=== PATIENT | male | born 1995 | race African-American/Black ===

== ENCOUNTER 2017-12-24 19:18 | Emergency (ER) | payer MEDICAID ==
[~2017-12-24] VITALS: Ht 182.9 cm; Wt 75.0 kg
[2017-12-24 19:21] VITALS: BP 140/80
[2017-12-24 19:47] LABS: BASOPHILS # (AUTO) 0.1 X10'3 (0-0.2); BASOPHILS % (AUTO) 1.5 % (0-1); EOSINOPHILS # (AUTO) 0.1 X10'3 (0-0.9); EOSINOPHILS % (AUTO) 3.1 % (0-6); HEMATOCRIT 46.5 % (42.0-52.0); HEMOGLOBIN 15.8 g/dl (14.0-17.9); LYMPHOCYTES # (AUTO) 2.1 X10'3 (1.1-4.8); MEAN CORPUSCULAR HEMOGLOBIN 30.8 PG (27.0-31.0); MEAN CORPUSCULAR HGB CONC 33.9 % (33.0-36.5); MEAN CORPUSCULAR VOLUME 90.7 FL (78-98); MEAN PLATELET VOLUME 7.7 FL (7.4-10.4); MONOCYTES # (AUTO) 0.3 X10'3 (0-0.9); MONOCYTES % (AUTO) 6.4 % (2-12); NEUTROPHILS # (AUTO) 1.9 X10'3 (1.8-7.7); PLATELET COUNT 200 X10'3 (140-440); RED BLOOD COUNT 5.13 X10'6 (4.70-6.10); WHITE BLOOD COUNT 4.5 X10'3 (4.5-11.0)
[2017-12-24 20:02] LABS: INR 1.1 INR; PARTIAL THROMBOPLASTIN TIME 29 SECONDS (22-32)
[2017-12-24 20:03] LABS: ALANINE AMINOTRANSFERASE 34 U/L (12-78); ALBUMIN 3.9 G/DL (3.4-5.0); ALBUMIN/GLOBULIN RATIO 1.1 (1.1-1.5); ALKALINE PHOSPHATASE 87 IU/L (46-116); ANION GAP 7 (8-16); ASPARTATE AMINO TRANSFERASE 18 U/L (10-37); BILIRUBIN,TOTAL 0.8 MG/DL (0.1-1.0); BLOOD UREA NITROGEN 13 MG/DL (7-18); BUN/CREATININE RATIO 12.3 (5.4-32.0); CALCIUM 10.1 MG/DL (8.5-10.1); CHLORIDE 103 MMOL/L (99-107); CREATININE 1.06 MG/DL (0.60-1.10); GLUCOSE 77 MG/DL (70-104); POTASSIUM 3.8 MMOL/L (3.5-5.1); SODIUM 139 MMOL/L (135-145); TOTAL CARBON DIOXIDE 28.7 MMOL/L (24-32); TOTAL PROTEIN 7.5 G/DL (6.4-8.2); eGFR 86 ML/MIN
== END 2017-12-24 20:46 | disposition home or self-care (01) ==
LOC: ER 19:20
DX: R07.89 Other chest pain (principal); J45.909 Unspecified asthma, uncomplicated; F12.10 Cannabis abuse, uncomplicated; R10.31 Right lower quadrant pain
CPT/HCPCS: 36415; 71045; 80053; 84484; 85025; 85610; 85730; 99285

== ENCOUNTER 2018-05-20 12:01 | Emergency (ER) | payer MEDICAID ==
[~2018-05-20] VITALS: Ht 182.9 cm; Wt 76.8 kg
[2018-05-20] MEDS ORDERED: aspirin 81mg tab.chew PO ONE (12:20)
[2018-05-20 12:49] LABS: BASOPHILS % (AUTO) 0.7 % (0-1); EOSINOPHILS % (AUTO) 0.5 % (0-6); HEMATOCRIT 45.8 % (42.0-52.0); HEMOGLOBIN 15.6 g/dl (14.0-17.9); LYMPHOCYTES # (AUTO) 1.1 X10'3 (1.1-4.8); LYMPHOCYTES % (AUTO) 40.2 % (21-51); MEAN CORPUSCULAR HEMOGLOBIN 30.9 PG (27.0-31.0); MEAN CORPUSCULAR HGB CONC 34.1 g/dL (33.0-36.5); MEAN CORPUSCULAR VOLUME 90.4 FL (78-98); MEAN PLATELET VOLUME 7.5 FL (7.4-10.4); MONOCYTES # (AUTO) 0.2 X10'3 (0-0.9); MONOCYTES % (AUTO) 6.6 % (2-12); NEUTROPHILS # (AUTO) 1.5 X10'3 (1.8-7.7); PLATELET COUNT 190 X10'3 (140-440); RED BLOOD COUNT 5.06 X10'6 (4.70-6.10); WHITE BLOOD COUNT 2.8 X10'3 (4.5-11.0)
--- NOTE | 2018-05-20 12:53 | NUR ---
PT'S CHEST PAIN NOT CARDIAC PER DR NAIDUF'S
[2018-05-20] MEDS ORDERED: ibuprofen tablet 400 MG TABLET PO ONE (12:55)
[2018-05-20 13:00] LABS: ALANINE AMINOTRANSFERASE 36 U/L (12-78); ALBUMIN 4.1 G/DL (3.4-5.0); ALBUMIN/GLOBULIN RATIO 1.2 (1.1-1.5); ALKALINE PHOSPHATASE 83 IU/L (46-116); ANION GAP 4 (8-16); ASPARTATE AMINO TRANSFERASE 17 U/L (10-37); BILIRUBIN,TOTAL 0.9 MG/DL (0.1-1.0); BLOOD UREA NITROGEN 13 MG/DL (7-18); BUN/CREATININE RATIO 13.7 (5.4-32.0); CALCIUM 9.9 MG/DL (8.5-10.1); CHLORIDE 105 MMOL/L (99-107); CREATININE 0.95 MG/DL (0.60-1.10); GLUCOSE 91 MG/DL (70-104); POTASSIUM 3.8 MMOL/L (3.5-5.1); SODIUM 137 MMOL/L (135-145); TOTAL CARBON DIOXIDE 28.2 MMOL/L (24-32); TOTAL PROTEIN 7.6 G/DL (6.4-8.2); eGFR > 90 ML/MIN
[2018-05-20 13:09] LABS: INR 1.1 INR; PARTIAL THROMBOPLASTIN TIME 27 SECONDS (22-32); PROTHROMBIN TIME 11.1 SECONDS (9.0-12.0)
[2018-05-20 13:19] VITALS: BP 101/80
[2018-05-20 13:42] LABS: TOTAL CELLS COUNTED 100
[2018-05-20 13:43] LABS: PLATELET ESTIMATE NORMAL
== END 2018-05-20 13:21 | disposition home or self-care (01) ==
LOC: ER 12:02
DX: R07.9 Chest pain, unspecified (principal); R06.02 Shortness of breath; J45.909 Unspecified asthma, uncomplicated; F12.90 Cannabis use, unspecified, uncomplicated
CPT/HCPCS: 36415; 71045; 80053; 84484; 85025; 85610; 85730; 93005; 99284

== ENCOUNTER 2018-06-29 13:47 | Emergency (ER) | payer MEDICAID ==
[~2018-06-29] VITALS: Ht 185.4 cm; Wt 79.5 kg
[2018-06-29 15:00] VITALS: BP 109/69
[2018-06-29] MEDS ORDERED: ondansetron 4mg rapidly disintigrating tab PO ONE (15:00)
[2018-06-29] MEDS ORDERED: predniSONE 20 mg tablet PO ONE (15:00)
[2018-06-29] MEDS ORDERED: albuterol 2.5 MG/3 ML nebule CONTNEB PRN (15:00)
[2018-06-29] MEDS ORDERED: ALBU6.7H INH (15:27)
== END 2018-06-29 16:28 | disposition home or self-care (01) ==
LOC: ER 13:48
DX: J45.901 Unspecified asthma with (acute) exacerbation (principal); R11.10 Vomiting, unspecified; F12.90 Cannabis use, unspecified, uncomplicated; Z79.899 Other long term (current) drug therapy; Z87.891 Personal history of nicotine dependence
CPT/HCPCS: 94644; 99285; J7512; 94640

== ENCOUNTER 2018-08-15 10:37 | Observation (INO) | payer MEDICAID ==
[~2018-08-15] VITALS: Ht 180.3 cm; Wt 75.0 kg
[~2018-08-15 10:37] MED LIST: ALBU6.7H9 INH
[2018-08-15] MEDS ORDERED: iohexol 350MG/ML 100ml bottle IV ONE (11:08)
--- NOTE | 2018-08-15 11:44 | NUR ---
PT C/O PAIN WITH MOVEMENT OF HIS RIGHT ARM
[2018-08-15 11:45] LABS: EOSINOPHILS # (AUTO) 0.1 X10'3 (0-0.9); LYMPHOCYTES # (AUTO) 1.8 X10'3 (1.1-4.8); NEUTROPHILS # (AUTO) 0.7 X10'3 (1.8-7.7)
[2018-08-15 11:56] LABS: PARTIAL THROMBOPLASTIN TIME 29 SECONDS (22-32)
[2018-08-15 11:59] LABS: ALANINE AMINOTRANSFERASE 25 U/L (12-78); ALBUMIN/GLOBULIN RATIO 1.1 (1.1-1.5); ALKALINE PHOSPHATASE 77 IU/L (46-116); ANION GAP 7 (8-16); ASPARTATE AMINO TRANSFERASE 13 U/L (10-37); BILIRUBIN,TOTAL 0.6 MG/DL (0.1-1.0); BLOOD UREA NITROGEN 9 MG/DL (7-18); CALCIUM 9.9 MG/DL (8.5-10.1); CHLORIDE 103 MMOL/L (99-107); GLUCOSE 89 MG/DL (70-104); POTASSIUM 3.8 MMOL/L (3.5-5.1); SODIUM 137 MMOL/L (135-145); TOTAL CARBON DIOXIDE 26.7 MMOL/L (24-32); TOTAL PROTEIN 7.7 G/DL (6.4-8.2); TROPONIN I < 0.04 NG/ML (0.0-0.05); eGFR > 90 ML/MIN
[2018-08-15 12:00] LABS: HEMATOCRIT 46.1 % (42.0-52.0); HEMOGLOBIN 15.5 g/dl (14.0-17.9); RED BLOOD COUNT 5.03 X10'6 (4.70-6.10); WHITE BLOOD COUNT 2.8 X10'3 (4.5-11.0)
[2018-08-15 12:01] LABS: MEAN CORPUSCULAR HEMOGLOBIN 30.9 PG (27.0-31.0); MEAN CORPUSCULAR HGB CONC 33.7 g/dL (33.0-36.5); MEAN CORPUSCULAR VOLUME 91.6 FL (78-98); PLATELET COUNT 190 X10'3 (140-440)
[2018-08-15 12:02] LABS: EOSINOPHILS % (AUTO) 4.2 % (0-6); MONOCYTES % (AUTO) 7.2 % (2-12); NEUTROPHILS % (AUTO) 24.6 % (42-75)
[2018-08-15 12:03] LABS: MONOCYTES # (AUTO) 0.2 X10'3 (0-0.9)
[2018-08-15 12:41] LABS: TOTAL CELLS COUNTED 100
[2018-08-15 12:42] LABS: PLATELET ESTIMATE NORMAL
[2018-08-15] MEDS ORDERED: normal saline 1000ml 1,000 ML IV SCH (13:03)
[2018-08-15] MEDS ORDERED: aspirin 325mg tablet PO ONE (13:05)
[2018-08-15] MEDS ORDERED: HYDROcodone/acetaminophen 5mg/325mg tablet PO PRN (13:05)
[2018-08-15] MEDS ORDERED: magnesium 2GM in 50ml NS 50 ML IV PRN (13:05)
[2018-08-15] MEDS ORDERED: potassium Cl 20 mEq SR tablet PO PRN ×2 (13:05)
[2018-08-15] MEDS ORDERED: mag hydrox/Alum hydrox/simeth 30ml oral suspension PO PRN (13:05)
[2018-08-15] MEDS ORDERED: magnesium hydroxide 30ml (MOM) UD suspension PO PRN (13:05)
[2018-08-15] MEDS ORDERED: metoclopramide 5 mg/ml inj IV PRN (13:05)
[2018-08-15] MEDS ORDERED: magnesium Cl slow-release 64mg tablet PO PRN (13:05)
[2018-08-15] MEDS ORDERED: acetaminophen 325mg tablet PO PRN ×2 (13:05)
[2018-08-15] MEDS ORDERED: magnesium 4gm in 100ml NS 100 ML IV PRN (13:05)
[2018-08-15] MEDS ORDERED: potassium Cl 40MEQ/NS 500ml 500 ML IV PRN (13:05)
[2018-08-15] MEDS ORDERED: bisacodyl 10mg suppository rectal RC PRN (13:05)
[2018-08-15] MEDS ORDERED: ondansetron/PF 4mg/2ml inj IV PRN (13:05)
[2018-08-15] MEDS ORDERED: potassium CL 10mEq/100ml bag 100 ML IV PRN (13:05)
--- NOTE | 2018-08-15 13:40 | NUR ---
Received report from Heri DONATO who received report from the ER
[2018-08-15 13:45] VITALS: BP 135/85
--- NOTE | 2018-08-15 13:45 | NUR ---
Patient came to floor to room 4022B stable upon arrival
[2018-08-15 13:50] LABS: MAGNESIUM 1.8 MG/DL (1.5-2.4); PHOSPHORUS 2.6 MG/DL (2.3-4.5)
[2018-08-15 14:12] LABS: HEMOGLOBIN A1C 5.4 % (4.5-6.2)
[2018-08-15] MEDS: ketorolac trometh. 30mg/ml inj. IV SCH ×2 (16:28→22:15)
[2018-08-15 18:00] VITALS: BP 114/75
--- NOTE | 2018-08-15 18:17 | NUR ---
Problems reprioritized. Patient report given, questions answered & plan of care reviewed with Shiva DONATO.
[2018-08-15] MEDS ORDERED: temazepam 15mg capsule PO PRN (21:00)
[2018-08-15 22:00] VITALS: BP 113/65
[2018-08-16] MEDS: ketorolac trometh. 30mg/ml inj. IV SCH ×3 (05:43→14:00)
[2018-08-16 05:57] LABS: EOSINOPHILS # (AUTO) 0.2 X10'3 (0-0.9); LYMPHOCYTES # (AUTO) 1.9 X10'3 (1.1-4.8); MONOCYTES # (AUTO) 0.2 X10'3 (0-0.9); NEUTROPHILS # (AUTO) 0.7 X10'3 (1.8-7.7)
[2018-08-16 05:59] LABS: BASOPHILS % (AUTO) 0.9 % (0-1); EOSINOPHILS % (AUTO) 5.7 % (0-6); HEMATOCRIT 47.4 % (42.0-52.0); LYMPHOCYTES % (AUTO) 61.9 % (21-51); MEAN CORPUSCULAR HEMOGLOBIN 31.4 PG (27.0-31.0); MEAN CORPUSCULAR HGB CONC 33.8 g/dL (33.0-36.5); MEAN CORPUSCULAR VOLUME 92.9 FL (78-98); MEAN PLATELET VOLUME 7.4 FL (7.4-10.4); MONOCYTES % (AUTO) 7.6 % (2-12); NEUTROPHILS % (AUTO) 23.9 % (42-75); PLATELET COUNT 176 X10'3 (140-440)
[2018-08-16 06:00] VITALS: BP 106/74
[2018-08-16 06:16] LABS: ALANINE AMINOTRANSFERASE 17 U/L (12-78); ALBUMIN 3.6 G/DL (3.4-5.0); ALKALINE PHOSPHATASE 73 IU/L (46-116); ANION GAP 6 (8-16); ASPARTATE AMINO TRANSFERASE 9 U/L (10-37); BILIRUBIN,TOTAL 0.5 MG/DL (0.1-1.0); BLOOD UREA NITROGEN 9 MG/DL (7-18); CALCIUM 9.3 MG/DL (8.5-10.1); CHLORIDE 104 MMOL/L (99-107); CHOL/HDL RATIO 2.3 (0.00-4.99); CHOLESTEROL 161 MG/DL (0-200); GLUCOSE 84 MG/DL (70-104); HDL CHOLESTEROL 71 MG/DL (35-60); LDL CHOLESTEROL 82 MG/DL (50-100); MAGNESIUM 1.8 MG/DL (1.5-2.4); SODIUM 137 MMOL/L (135-145); TOTAL CARBON DIOXIDE 26.7 MMOL/L (24-32); TOTAL PROTEIN 7.1 G/DL (6.4-8.2); TRIGLYCERIDES 58 MG/DL (20-135); eGFR > 90 ML/MIN
[2018-08-16 07:05] LABS: TOTAL CELLS COUNTED 100
[2018-08-16 07:06] LABS: PLATELET ESTIMATE NORMAL
[2018-08-16] MEDS ORDERED: aspirin 81mg tablet.DR PO SCH (08:00)
[2018-08-16] MEDS ORDERED: K and/or MAG REPLACEMENT MC SCH (08:00)
[2018-08-16 10:00] VITALS: BP 105/60
[2018-08-16] MEDS ORDERED: ALBU6.7H9 INH (14:07)
--- NOTE | 2018-08-16 14:32 | NUR ---
Received discharge orders from Dr. Miner. MRI negative that was completed today. Informed pt that MRI follow up exam was negative. Saline lock dc'd from RFA with cannula intact. No redness/swelling at insertion site. Pressure and bandaid applied. Reviewed discharge instructions with pt. Transferred to [facility] for pickup.
[2018-08-17] MEDS ORDERED: gadopentetate dimeglumine 10 MMOL/20 ML syringe IV ONE ×2 (08:31)
== END 2018-08-16 14:56 | disposition home or self-care (01) ==
LOC: ER 10:38 → ORTHO 4S 13:18
PROVIDERS: ADMIT Family Medicine; ATTEND Family Medicine
DX: R20.2 Paresthesia of skin (principal); J45.909 Unspecified asthma, uncomplicated; D72.819 Decreased white blood cell count, unspecified; F12.90 Cannabis use, unspecified, uncomplicated
CPT/HCPCS: 36415; 70450; 70496; 70498; 70553; 71045; 72156; 72157; 72158; 80053; 80061; 82948; 83036; 83735; 84100; 84443; 84484; 85025; 85610; 85651; 85730; 87081; 93005; 93306; 93880; 96374; 96375; 96376; 97161; 99284; G0378; J1885; Q9967; A9579; J7030

== ENCOUNTER 2018-09-02 12:06 | Emergency (ER) | payer MEDICAID ==
[~2018-09-02] VITALS: Ht 180.3 cm; Wt 71.8 kg
[~2018-09-02 12:06] MED LIST changes: +ALBU6.7H INH; -ALBU6.7H9 INH
[2018-09-02 12:24] LABS: EOSINOPHILS # (AUTO) 0.1 X10'3 (0-0.9); HEMOGLOBIN 15.6 g/dl (14.0-17.9); MONOCYTES # (AUTO) 0.2 X10'3 (0-0.9); WHITE BLOOD COUNT 3.2 X10'3 (4.5-11.0)
[2018-09-02] MEDS ORDERED: aspirin 325mg tablet PO ONE ×2 (12:25→13:05)
[2018-09-02] MEDS ORDERED: LORazepam 2 mg/ml vial IV ONE (12:25)
--- NOTE | 2018-09-02 12:25 | NUR ---
RESPONDED TO STROKE ALERT, PT ALERT AND ORIENTED. TEXTING ON PHONE USING ONLY HIS RIGHT HAND. STATES HIS RIGHT ARM, CHEST AND LEG ARE NUMB. DESCRIBES PINS AND NEEDLES, "FEELS LIKE WALKING ON NAILS" "HURTS REALLY BAD" NO FOCAL FINDINGS OF STROKE. DR. CALIXTO IN TO SEE, WILL STAND DOWN STROKE ALERT.
[2018-09-02 12:26] LABS: BASOPHILS % (AUTO) 0.7 % (0-1); EOSINOPHILS % (AUTO) 2.1 % (0-6); HEMATOCRIT 46.4 % (42.0-52.0); LYMPHOCYTES # (AUTO) 1.6 X10'3 (1.1-4.8); LYMPHOCYTES % (AUTO) 49.1 % (21-51); MEAN CORPUSCULAR HEMOGLOBIN 30.9 PG (27.0-31.0); MEAN CORPUSCULAR HGB CONC 33.5 g/dL (33.0-36.5); MEAN PLATELET VOLUME 7.5 FL (7.4-10.4); MONOCYTES % (AUTO) 6.9 % (2-12); NEUTROPHILS # (AUTO) 1.3 X10'3 (1.8-7.7); NEUTROPHILS % (AUTO) 41.2 % (42-75); PLATELET COUNT 188 X10'3 (140-440); RED BLOOD COUNT 5.04 X10'6 (4.70-6.10)
[2018-09-02 12:39] LABS: PARTIAL THROMBOPLASTIN TIME 29 SECONDS (22-32)
[2018-09-02 12:40] LABS: ALANINE AMINOTRANSFERASE 25 U/L (12-78); ALBUMIN 3.9 G/DL (3.4-5.0); ALBUMIN/GLOBULIN RATIO 1.1 (1.1-1.5); ALKALINE PHOSPHATASE 78 IU/L (46-116); ANION GAP 7 (8-16); ASPARTATE AMINO TRANSFERASE 12 U/L (10-37); BILIRUBIN,TOTAL 0.8 MG/DL (0.1-1.0); BLOOD UREA NITROGEN 10 MG/DL (7-18); BUN/CREATININE RATIO 9.3 (5.4-32.0); CALCIUM 10.1 MG/DL (8.5-10.1); CHLORIDE 106 MMOL/L (99-107); CREATININE 1.07 MG/DL (0.60-1.10); GLUCOSE 82 MG/DL (70-104); POTASSIUM 3.9 MMOL/L (3.5-5.1); SODIUM 138 MMOL/L (135-145); TOTAL CARBON DIOXIDE 25.3 MMOL/L (24-32); TOTAL PROTEIN 7.4 G/DL (6.4-8.2); eGFR > 90 ML/MIN
[2018-09-02 12:44] LABS: TROPONIN I < 0.04 NG/ML (0.0-0.05)
[2018-09-02 14:33] VITALS: BP 118/63
== END 2018-09-02 14:20 | disposition home or self-care (01) ==
LOC: ER 12:07
DX: R20.2 Paresthesia of skin (principal); R20.0 Anesthesia of skin; J45.909 Unspecified asthma, uncomplicated; F41.9 Anxiety disorder, unspecified; Z79.899 Other long term (current) drug therapy
CPT/HCPCS: 36415; 70450; 71045; 80053; 84484; 85025; 85610; 85730; 93005; 96374; 99284; J2060

== ENCOUNTER 2018-09-13 10:30 | Emergency (ER) | payer MEDICAID ==
[~2018-09-13] VITALS: Ht 185.4 cm; Wt 68.0 kg
[~2018-09-13 10:30] MED LIST changes: -ALBU6.7H INH; +ALBU6.7H9 INH
[2018-09-13] MEDS ORDERED: ketorolac trometh. 30mg/ml inj. IV ONE (10:45)
[2018-09-13 11:05] LABS: HEMATOCRIT 44.2 % (42.0-52.0); HEMOGLOBIN 14.9 g/dl (14.0-17.9); MEAN CORPUSCULAR HEMOGLOBIN 30.6 PG (27.0-31.0); MEAN CORPUSCULAR HGB CONC 33.7 g/dL (33.0-36.5); MEAN CORPUSCULAR VOLUME 90.9 FL (78-98); MEAN PLATELET VOLUME 7.7 FL (7.4-10.4); PLATELET COUNT 150 X10'3 (140-440); RED BLOOD COUNT 4.86 X10'6 (4.70-6.10); RED CELL DISTRIBUTION WIDTH 13.6 % (11.5-14.5)
[2018-09-13 11:13] LABS: WHITE BLOOD COUNT 2.7 X10'3 (4.5-11.0)
[2018-09-13 11:21] LABS: ALANINE AMINOTRANSFERASE 27 U/L (12-78); ALBUMIN 3.7 G/DL (3.4-5.0); ALBUMIN/GLOBULIN RATIO 1.1 (1.1-1.5); ALKALINE PHOSPHATASE 68 IU/L (46-116); ANION GAP 9 (8-16); ASPARTATE AMINO TRANSFERASE 10 U/L (10-37); BILIRUBIN,TOTAL 0.5 MG/DL (0.1-1.0); BLOOD UREA NITROGEN 12 MG/DL (7-18); BUN/CREATININE RATIO 12.6 (5.4-32.0); CALCIUM 9.7 MG/DL (8.5-10.1); CHLORIDE 106 MMOL/L (99-107); CREATININE 0.95 MG/DL (0.60-1.10); GLUCOSE 89 MG/DL (70-104); SODIUM 141 MMOL/L (135-145); TOTAL CARBON DIOXIDE 26.5 MMOL/L (24-32); TOTAL PROTEIN 7.1 G/DL (6.4-8.2); eGFR > 90 ML/MIN
[2018-09-13 11:28] LABS: MAGNESIUM 1.8 MG/DL (1.5-2.4)
[2018-09-13 11:38] LABS: D-DIMER < 0.19 MG/L FEU (0-0.50)
[2018-09-13 11:56] LABS: PLATELET ESTIMATE NORMAL; TOTAL CELLS COUNTED 100
[2018-09-13 12:00] VITALS: BP 156/71
== END 2018-09-13 12:16 | disposition home or self-care (01) ==
LOC: ER 10:30
DX: M54.6 Pain in thoracic spine (principal); R07.89 Other chest pain; R11.2 Nausea with vomiting, unspecified; J45.909 Unspecified asthma, uncomplicated; F41.9 Anxiety disorder, unspecified; F12.90 Cannabis use, unspecified, uncomplicated; Z79.899 Other long term (current) drug therapy
CPT/HCPCS: 36415; 71045; 80053; 83735; 83880; 84484; 85025; 85379; 93005; 96374; 99283; J1885

== ENCOUNTER 2020-08-10 20:04 | Emergency (ER) | payer MEDICAID ==
[~2020-08-10] VITALS: Ht 182.9 cm; Wt 72.7 kg
[2020-08-10 20:12] VITALS: BP 132/81
== END 2020-08-10 22:30 | disposition left against medical advice (07) ==
LOC: ER 20:05
DX: R07.89 Other chest pain (principal); Z53.21 Procedure and treatment not carried out due to patient leaving prior to being seen by health care provider

== ENCOUNTER 2021-04-15 13:15 | Emergency (ER) | payer MEDICAID ==
[~2021-04-15] VITALS: Ht 185.4 cm; Wt 77.3 kg
[2021-04-15 13:24] VITALS: BP 107/73
[2021-04-15] MEDS ORDERED: IBUP-1986 PO (14:40)
== END 2021-04-15 15:28 | disposition home or self-care (01) ==
LOC: ER 13:15
DX: S93.432A Sprain of tibiofibular ligament of left ankle, initial encounter (principal); M25.572 Pain in left ankle and joints of left foot; J45.909 Unspecified asthma, uncomplicated; F41.9 Anxiety disorder, unspecified; F12.90 Cannabis use, unspecified, uncomplicated; Z79.899 Other long term (current) drug therapy; W01.0XXA Fall on same level from slipping, tripping and stumbling without subsequent striking against object, initial encounter; Y93.89 Activity, other specified; Y92.89 Other specified places as the place of occurrence of the external cause; Y99.8 Other external cause status
CPT/HCPCS: 29505; 29515; 73610; 99283

== ENCOUNTER 2021-05-13 15:59 | Emergency (ER) | payer MEDICAID, OTHER ==
[~2021-05-13] VITALS: Ht 185.4 cm; Wt 81.4 kg
[~2021-05-13 15:59] MED LIST changes: +IBUP-1986 PO
[2021-05-13 16:21] VITALS: BP 120/69
[2021-05-13] MEDS ORDERED: clindamycin 150mg capsule PO ONE (16:45)
[2021-05-13] MEDS ORDERED: ketorolac trometh. 30mg/ml inj. IM ONE (16:45)
[2021-05-13] MEDS ORDERED: LIDOcaine 1% 30ml preserv. free vial IJ ONE (16:45)
[2021-05-13] MEDS ORDERED: CLIN300C54 PO (16:47)
[2021-05-13] MEDS ORDERED: IBUP-1986 PO (16:47)
[2021-05-13] MEDS ORDERED: LIDOcaine 1% (10mg/ml)w/preservative inj. 20ml MDV IJ ONE (17:20)
== END 2021-05-13 17:35 | disposition home or self-care (01) ==
LOC: ER 16:00
DX: K04.7 Periapical abscess without sinus (principal); K08.89 Other specified disorders of teeth and supporting structures; J45.909 Unspecified asthma, uncomplicated; F12.90 Cannabis use, unspecified, uncomplicated; Z72.89 Other problems related to lifestyle; Z79.2 Long term (current) use of antibiotics; Z79.899 Other long term (current) drug therapy
CPT/HCPCS: 41800; 96372; 99284; J1885; J3490